=== PATIENT | male | born 1965 | race Caucasian/White ===

== ENCOUNTER 2018-11-26 22:47 | Emergency (ER) | payer BC ==
--- NOTE | 2018-11-27 00:08 | ED Physician Documentation ---
PD HPI HEAD INJURY - Stated complaint Stated Complaint: HEAD LAC - Chief complaint Chief Complaint: Laceration - History obtained from History obtained from: Patient - History of Present Illness Mechanism of head injury: Blow Where head injury occurred: A house / apartment Timing - onset: Enter time (22:00) Location of injury: Front Quality of pain: Pain Associated symptoms: No: LOC, AMS, Amnesia, Nausea / vomiting, Neck pain, Ear drainage, Nasal drainage Symptoms improve with: Rest Symptoms worsen with: Palpation Contributing factors: No: Anticoagulated, Intoxicated Similar symptoms before: Has not had sx before Recently seen: Not recently seen - Additional information Additional information: Patient was jumping on a trampoline. Attempting a Flip, struck forehead and nose on the metallic springs at the outer edge of the trampoline. Denies loss of consciousness. Review of Systems Eyes: reports: Reviewed and negative Ears: reports: Reviewed and negative Nose: reports: Reviewed and negative Throat: reports: Reviewed and negative Skin: reports: Abrasion (s), Laceration (s) Neurologic: reports: Head injury. denies: Focal weakness, Numbness, Confused, Altered mental status, Headache, LOC PD PAST MEDICAL HISTORY - Past Medical History Past Medical History: Yes Cardiovascular: None Respiratory: None Neuro: None Endocrine/Autoimmune: None GI: None : None HEENT: None Psych: None Musculoskeletal: None Derm: None - Past Surgical History Past Surgical History: No - Present Medications Home Medications: Ambulatory Orders Medication Instructions Recorded Confirmed No Known Home Medications 11/26/18 11/26/18 - Allergies Allergies/Adverse Reactions: Allergies Allergy/AdvReac Type Severity Reaction Status Date / Time No Known Drug Allergies Allergy Verified 11/26/18 22:53 - Social History Does the pt smoke?: No Smoking Status: Never smoker Does the pt drink ETOH?: Yes Does the pt have substance abuse?: No - Immunizations Immunizations are current?: Yes - POLST Patient has POLST: No PD ED PE NORMAL - Vitals Vital signs reviewed: Yes - General General: Alert and oriented X 3, No acute distress, Well developed/nourished - HEENT HEENT: PERRL, EOMI, Moist mucous membranes, Dentition benign - Neck Neck: Supple, no meningeal sign, No bony TTP - Neuro Neuro: Alert and oriented X 3, senior support engineer 2-12 intact, No motor deficit, No sensory deficit, Normal speech Eye Opening: Spontaneous Motor: Obeys Commands Verbal: Oriented GCS Score: 15 PD ED PE EXPANDED - HEENT HEENT Visual: 1 - abrasion (abrasion with avulsed skin, no bony deformity nor bony tenderness) 2 - abrasion (deep abrasion with some avulsed skin. no bony tenderness) Results - Vitals Vitals: Oxygen O2 Source Room air PD MEDICAL DECISION MAKING - ED course Complexity details: considered differential, d/w patient, d/w family ED course: no neuorologic complaints nor findings on exam. cervical spine is nontender. there are areas of avulsed skin on nasal bridge and forehead but no suturable or otherwise reparable lesions. steri strip was applied to a small area on forehead to skin that was too thin to suture and had partially avulsed at wound edge, preventing more secure repair with tissue adhesive Departure - Departure Disposition: 01 Home, Self Care Clinical Impression: Abrasion, Cervical strain, Head injury Condition: Good Instructions: ED Abrasion, ED Contusion Nasal Vs Fx No X Ray, ED Head Injury Closed Sleep Mon, ED Sprain Strain Neck Discharge Date/Time: 11/27/18 00:55
[2018-11-27] MEDS ORDERED: BACITRACIN OINT TOP STA (00:38)
[2018-11-27 00:55] VITALS: BP 136/86
== END 2018-11-27 00:55 | disposition home or self-care (01) ==
LOC: ED 22:47
DX: S16.1XXA Strain of muscle, fascia and tendon at neck level, initial encounter (principal); S00.81XA Abrasion of other part of head, initial encounter; S00.31XA Abrasion of nose, initial encounter; S09.90XA Unspecified injury of head, initial encounter; W21.89XA Striking against or struck by other sports equipment, initial encounter; Y93.44 Activity, trampolining; Y92.039 Unspecified place in apartment as the place of occurrence of the external cause
CPT/HCPCS: 99282; 99283; A9270